=== PATIENT | female | born 1975 | race Hispanic/Latino ===

== ENCOUNTER → 2021-01-13 | Outpatient (CLI) | payer OTHER | END | disposition home or self-care (01) | LOC: RAH 10:03 | PROVIDERS: ATTEND Internal Medicine Cardiovascular Disease | DX: R06.00 Dyspnea, unspecified (principal) | CPT/HCPCS: 93306 ==

== ENCOUNTER → 2021-01-24 | Outpatient (CLI) | payer OTHER | END | disposition home or self-care (01) | LOC: RAH 14:22 | PROVIDERS: ATTEND Internal Medicine Critical Care Medicine | DX: I27.24 Chronic thromboembolic pulmonary hypertension (principal); J84.9 Interstitial pulmonary disease, unspecified; J98.4 Other disorders of lung; Z90.49 Acquired absence of other specified parts of digestive tract | CPT/HCPCS: 71250 ==

== ENCOUNTER → 2021-01-31 | Outpatient (CLI) | payer OTHER ==
[~2021-01-31] MED LIST: SOLU-MEDROL 125MG/2ML VIAL IVP SCH
== END | disposition home or self-care (01) ==
LOC: RAH 13:48
PROVIDERS: ATTEND Internal Medicine Critical Care Medicine
DX: I27.24 Chronic thromboembolic pulmonary hypertension (principal); J84.9 Interstitial pulmonary disease, unspecified; R06.02 Shortness of breath; Z86.16 Personal history of COVID-19
CPT/HCPCS: 71046; 78582; A9540; A9558